=== PATIENT | female | born 1965 | race Caucasian/White ===

== ENCOUNTER 2016-10-31 11:34 | Emergency (ER) | payer OTHER ==
[~2016-10-31] VITALS: Ht 167.6 cm; Wt 81.4 kg
[~2016-10-31 11:34] MED LIST: NOMED
[2016-10-31 11:40] VITALS: BP 108/64; PULSE 72; RESP 12; O2SAT 100
[2016-10-31 12:00] VITALS: BP 112/63; PULSE 72; RESP 11; O2SAT 100
[2016-10-31 12:08] VITALS: BP 98/58; PULSE 77; RESP 23; O2SAT 100
--- NOTE | 2016-10-31 12:24 | ED.REPORT ---
HPI-General Illness Date of Service Oct 31, 2016 ED Provider: Stone Zaldivar MD 51 year old female with a history of Ceslo's Thyroiditis presents to the ER complaining of a week of persistent dizziness and nausea, worsening markedly this morning. She was seen by her PCP a week ago for headache, dizziness, nausea , neck stiffness, and weakness, at which time she was diagnosed with a viral illness. Throughout the week symptoms were gradually improving and the headache had resolved, until today when she awakened with severe symptom exacerbation, and an episode of near-syncope which prompted her ER visit today. She also mentions a week of left arm tingling. Patient denies significant cardiopulmonary history. Nursing Notes Stated Complaint: DIZZY/NAUSEA/RACING HEART Chief Complaint: FLU/Cold Symptoms Nursing Notes Reviewed: Yes Allergies: Coded Allergies: Sulfa (Sulfonamide Antibiotics) (Verified Allergy, Severe, 01/27/15) phenytoin (Verified Allergy, Severe, 07/11/09) Miscellaneous Medications No Historical Medication (No Historical Medication) Ea 0 General Time Seen by MD: 12:20 Chief Complaint Dizziness Hx Obtained From: Patient Arrived By: Walk-in Sudden in Onset?: No Onset Occurred: 1 week ago Symptom Duration: Since onset Associated with: Reports: Headache, Nausea, Neck pain, Denies: Loss of consciousness, Vomiting Similar Sx Previous: No Past Medical History Past Medical History Myositis Celso's Thyroiditis [place] Denies: Asthma, COPD, Cancer, Congestive heart failure, Coronary artery disease , Hypertension, Stroke Denies: Atrial fibrillation Past Surgical History Umbilical hernia Reports: , Tonsillectomy Smoking History Never Smoker Social History Alcohol Use: Denies alcohol use Other Social History: Good social support Ambulatory Status Independent Review of Systems Full Review of Systems Constitutional: Reports: Weakness - generalized, Denies: Chills, Fever Respiratory: Denies: Non-productive cough, Shortness of breath Cardiovascular: Denies: Chest pain GI: Reports: Nausea, Denies: Diarrhea, Vomiting Musculoskeletal: Reports: Neck pain, Denies: Back pain, Extremity pain Neurologic: Reports: Dizziness, Headache, Lightheaded, Numbness (Left Arm), Denies: Change LOC, Confusion, Slurred speech, Syncope, Unable to speak, Vision change Complete sys rev & neg: except as marked. Physical Exam Vital Signs Vital Signs Date Time Temp Pulse Resp B/P Pulse Ox O2 Delivery O2 Flow Rate FiO2 10/31/16 12:08 77 23 98/58 100 Room Air 10/31/16 12:00 72 11 112/63 100 Room Air 10/31/16 11:40 37.3 72 12 108/64 100 Room Air Initial VS: Reviewed Head / Eyes: Atraumatic, Normocephalic Neck: Supple, Non-tender, Full range of motion Abdomen / GI: Soft, Non-tender, No guarding, No rebound, No distention Extremities: Vascular intact, Neuro intact, No swelling, No tenderness Skin: Warm, Dry, No cyanosis Neurologic: Alert, Oriented, Nonfocal Psychiatric: Mood/affect normal, Behavior normal, Normal thought content General/Constitutional: Awake, Alert, Well developed, Well nourished Respiratory / Chest: Breath sounds NL, No respiratory distress, No rales, No rhonchi, No wheezing Cardiovascular: Heart rate NL, Regular rhythm, Heart sounds NL, Cap refill not delayed, Peripheral circulation NL Back: Inspection NL, Painless range of motion, Non-tender, No CVA tenderness Interpretation & Diagnostics Lab Results Interpretation Result Diagram: 10/31/16 1309 10/31/16 1309 Test 10/31/16 12:00 10/31/16 13:09 10/31/16 13:10 Urine Color Straw (YELLOW) Urine Appearance Hazy (CLEAR,HAZY) Urine pH 7.5 (5.0-8.0) Urine Specific [place] 1.010 (1.003-1.035) Urine Protein Negativemg/dL (NEG,TRACE) Urine Glucose (UA) Negativemg/dL (NEGATIVE) Urine Ketones Negativemg/dL (NEGATIVE) Urine Occult Blood Negative (NEGATIVE) Urine Nitrite Negative (NEGATIVE) Urine Bilirubin Negative (NEGATIVE) Urine Urobilinogen Normalmg/dL (NORMAL) Urine Leukocyte Esterase Negative (NEGATIVE) Urine RBC 0-2/hpf (0-2) Urine WBC 0-5/hpf (0-5) Urine Epithelial Cells Occasional/hpf (NONE-MOD) Urine Crystals None seen (NONE SEEN) Urine Bacteria Moderate/hpf (NONE-FEW) Urine Hyaline Casts None/lpf (NONE) Urine Granular Casts None seen (NONE SEEN) Urine Waxy Casts None seen (NONE SEEN) Urine Red Blood Cell Casts None seen (NONE SEEN) Urine White Blood Cell Casts None seen (NONE SEEN) Urine Mucus None seen (None Seen) Urine Trichomonas None seen (NONE SEEN) Urine Yeast None (NONE SEEN) Urinalysis Comment None Urine Culture Reflexed Indicated White Blood Count 7.1th/mm3 (3.8-10.1) Red Blood Count 3.97mil/mm3 (3.90-5.20) Hemoglobin 9.8g/dL (12.0-15.6) Hematocrit 31.9% (35.0-46.0) Mean Corpuscular Volume 80.4fL (81-100) Mean Corpuscular Hemoglobin 24.7pg (27.0-35.0) Mean Corpuscular Hemoglobin Concent 30.7% (32.0-37.0) Red Cell Distribution Width 15.4% (12.3-15.4) Platelet Count 217bil/L (150-400) Neutrophils (%) (Auto) 71.2% (40-74) Lymphocytes (%) (Auto) 20.6% (14-46) Monocytes (%) (Auto) 7.2% (4-12) Eosinophils (%) (Auto) 0.6% (0-5) Basophils (%) (Auto) 0.3% (0-3) Sodium Level 139mEq/L (134-144) Potassium Level 3.9mEq/L (3.5-5.2) Chloride Level 105mEq/L (97-108) Carbon Dioxide Level 21mmol/L (18-29) Blood Urea Nitrogen 12mg/dL (6-24) Creatinine 0.69mg/dL (0.57-1.00) Estimat Glomerular Filtration Rate 128mL/min (>59) Glucose Level 111mg/dL (60-99) Calcium Level 8.6mg/dL (8.5-10.1) Magnesium Level 2.0mg/dL (1.6-2.6) Total Bilirubin 0.2mg/dL (0.0-1.2) Aspartate Amino Transf (AST/SGOT) 15U/L (0-50) Alanine Aminotransferase (ALT/SGPT) 13U/L (0-32) Alkaline Phosphatase 52U/L (25-150) Total Protein 6.4g/dL (6.4-8.4) Albumin 3.8g/dL (3.4-5.0) Hold [place] Top Tube Received (Received) ECG Interpretation ECG Interpretation: Sinus rhythm, rate 68 Low voltage, precordial leads Time: 12:19 Interpreted by: ED physician Re-Eval/Medical Decision Source of Hx: Old records Time of Eval: 13:59 Re-Evaluation/Progress Note: Discussed lab results and plan to discharge. Patient is amenable to the plan. Return precautions given. All other questions addressed. Counseled Regarding: Diagnosis, Lab results, Need for follow-up, When/why to return to ED Discharge & Departure Primary Impression: Dizziness Disposition: Home Discharge Condition All VS Reviewed: Yes Condition: Stable Additional Instructions: Your workup today was reassuring. Your lab results were normal. I do not believe that there is any immediately dangerous cause for your symptoms at this time. I think it is likely that your symptoms will resolve on their own in a few days. Drink plenty of fluids. Keep a liter of water by your side at all times, and make sure to take regular sips. Call your primary care provider today to arrange a follow-up appointment for Friday or Friday. Return to the ER if you develop worsening dizziness, confusion, facial droop, numbness/tingling, weakness, loss of consciousness, shortness of breath, high fever, vomiting, diarrhea, or any other worsening or concerning symptoms. Referrals: Jazlyn Cantor MD (PCP) Mary Attestation Portions of this note were transcribed by Kalen Jacob. I, Dr. Zaldivar, personally performed the history, physical exam and medical decision-making; I reviewed and confirmed the accuracy of the information in the transcribed note. Signed by: Mary Whitfield, 10/31/2016 and 14:04 copies to: Jazlyn Cantor MD, Kirk H MD Oct 31, 2016 12:24 KALEN JACOB Oct 31, 2016 12:48 Stone Zaldivar MD Oct 31, 2016 12:24 KALEN JACOB Oct 31, 2016 12:48
[2016-10-31] MEDS ORDERED: 0.9% Sodium Chloride 1,000 ML IV ONE (12:48)
[2016-10-31 13:16] LABS: BASOPHILS % (AUTO) 0.3 % (0-3); EOSINOPHILS % (AUTO) 0.6 % (0-5); MONOCYTES % (AUTO) 7.2 % (4-12); Mean Corpuscular Hemoglobin 24.7 pg (27.0-35.0); Mean Corpuscular Volume 80.4 fL (81-100); NEUTROPHILS % (AUTO) 71.2 % (40-74); Platelet Count 217 bil/L (150-400)
[2016-10-31 13:26] LABS: APPEARANCE,URINE HAZY (CLEAR,HAZY); COLOR,URINE STRAW (YELLOW); OCCULT BLOOD,URINE NEGATIVE (NEGATIVE); PH,URINE 7.5 (5.0-8.0); UROBILINOGEN,URINE NORMAL (NORMAL)
[2016-10-31 14:06] VITALS: BP 127/65; PULSE 66; RESP 14; O2SAT 100
== END 2016-10-31 14:07 | disposition home or self-care (01) ==
LOC: SED 11:34
DX: R42 Dizziness and giddiness (principal); E06.3 Autoimmune thyroiditis; Z88.2 Allergy status to sulfonamides; Z88.8 Allergy status to other drugs, medicaments and biological substances
CPT/HCPCS: 36415; 80053; 81000; 83735; 85025; 87086; 87088; 87804; 93005; 96360; 99285; J7030